=== PATIENT | male | born 1970 | race Caucasian/White ===

== ENCOUNTER 2017-02-14 11:40 | Emergency (ER) | payer MEDICAID ==
[~2017-02-14] VITALS: Ht 175.3 cm; Wt 99.8 kg
== END 2017-02-14 14:03 | disposition short-term general hospital (02) ==
LOC: ER 11:40
DX: R07.89 Other chest pain (principal); I10 Essential (primary) hypertension; K21.9 Gastro-esophageal reflux disease without esophagitis; Z87.891 Personal history of nicotine dependence
CPT/HCPCS: A9270